=== PATIENT | male | born 1945 | race Caucasian/White ===

== ENCOUNTER 2017-04-13 11:52 | Emergency (ER) | payer MEDICARE, BC ==
[2017-04-13 12:22] VITALS: BP 161/85
[2017-04-13] MEDS ORDERED: Lidocaine 1% 20 ML MDV INJECT ONE (12:31)
[2017-04-13] MEDS ORDERED: Diphtheria,Pertussis(Acell),Tetanus Vaccine 0.5 ML SDV IM ONE (12:32)
--- NOTE | 2017-04-13 12:35 | EDM.PDOC ---
ED HPI GENERAL MEDICAL PROBLEM - General Chief Complaint: Upper Extremity Injury/Pain Stated Complaint: INJURED FINGER ON LEFT HAND Time Seen by Provider: 04/13/17 12:25 Source of Information: Reports: Patient History Limitations: Reports: No Limitations - History of Present Illness INITIAL COMMENTS - FREE TEXT/NARRATIVE: Riley is a 72 year old male who presents to the ED with c/o left second digit pain/injury after getting finger stuck between log and back of wood splitter. Patient denies any other injuries. Last DT was in 2003. Onset: Today Left Hand Pain Score (Numeric/FACES): 5 - Related Data Allergies Allergy/AdvReac Type Severity Reaction Status Date / Time No Known Allergies Allergy Verified 03/06/15 06:41 Home Meds: Home Meds Aspirin [Halfprin] 81 mg PO DAILY 03/02/15 [History] Atenolol [Tenormin] 25 mg PO DAILY 03/02/15 [History] Omeprazole 20 mg PO DAILY 03/02/15 [History] Past Medical History Cardiovascular History: Reports: Other (See Below) Other Cardiovascular History: tachycardia Social & Family History - Tobacco Use Smoking Status *Q: Never Smoker Second Hand Smoke Exposure: No - Caffeine Use Caffeine Use: Reports: Soda - Alcohol Use Days Per Week of Alcohol Use: 7 Number of Drinks Per Day: 2 Total Drinks Per Week: 14 - Recreational Drug Use Recreational Drug Use: No Review of Systems - Review of Systems Review Of Systems: ROS reveals no pertinent complaints other than HPI. Trauma Exam - Physical Exam Exam: See Below Exam Limited By: No Limitations General Appearance: Reports: Alert, WD/WN, No Apparent Distress Head: Reports: Atraumatic Throat/Mouth: Reports: Normal Inspection Neck: Reports: Non-Tender Respiratory Exam: Reports: No Respiratory Distress Extremities: Other (Crush injury to left second digit of left hand, strength to finger 5/5 distally with intact flexion and extension, sensation intact) Skin: Reports: Other (flap/crush laceration, 3 cm in total around left nail. ) Course - Vital Signs Text/Narrative:: Riley is a 72 year old male who presents to the ED today with c/o left index finger pain after getting finger crushed between back of wood splitter and log. Please see HPI and focused exam. Patient has large laceration that starts just under nail matrix and extends laterally to left lateral finger. Approx 3 cm in length overall. Nail is lifted on left side with bruising under nail. Concern for distal phalange/open fracture. DT was updated here in the ED. Digital block was performed with a total of 10 ml of lidocaine which patient tolerated well. Patient was sent to x-ray to r/o fracture. X-ray returns with displaced tuft fracture. I discussed my findings with Dr. Miramontes who recommended speaking with orthopedic Dr. Frazier. Dr. Frazier recommended suture repair and nail removal. He did encourage replacing the nail for protection, bandage and splint. He will see patient for follow up on at 9:45. I discussed findings with patient. Would was well irrigated with sterile saline. Nail was removed. After nail was removed, it became evident that crush injury involved the nail bed as this was also lacerated. There was a small (2 mm) area of what appeared to be bone along left lateral nail bed portion. All areas of laceration were sutured, covering any exposed bone. A total of 15 (5-0 ) ethilon sutures were used. Patient tolerated procedure well. Due to nature of injury and laceration repair I was unable to replace nail. Patient's wound was covered with bacitracin and adaptic as well as tube gauze. Patient's finger was then placed in metal/foam splint. Patient was started on Augmentin for infection prophylaxis and provided appt follow up time with Dr. Frazier. I encouraged patient to alternate tylenol/ibuprofen for pain, I asked if he felt he needed something stronger for pain which he declined. Reasons to return to the ED discussed in detail. Patient agreeable to plan of care and questions answered prior to discharge. Patient discharged in stable condition. Last Recorded V/S: Last Vital Signs Temp 35.9 C 04/13/17 12:22 Pulse 57 L 04/13/17 12:22 Resp 16 04/13/17 12:22 BP 161/85 H 04/13/17 12:22 Pulse Ox 99 04/13/17 12:22 - Orders/Labs/Meds Orders: Active Orders 24 hr Category Date Time Status Vaccines to be Administered [RC] PER UNIT ROUTINE Care 04/13/17 12:33 Active Meds: Medications Discontinued Medications Generic Name Dose Route Start Last Admin Trade Name Freq PRN Reason Stop Dose Admin Bacitracin 1 dose 04/13/17 14:01 04/13/17 14:03 Bacitracin Oint 1 Gm TOP 04/13/17 14:02 1 dose ONETIME ONE Administration Diphtheria/Tetanus/Acell Pertussis 0.5 ml 04/13/17 12:32 04/13/17 12:45 Adacel IM 04/13/17 12:33 0.5 ml .ONCE ONE Administration Lidocaine HCl 20 ml 04/13/17 12:31 04/13/17 12:45 Xylocaine 1% INJECT 04/13/17 12:32 20 ml ONETIME ONE Administration Departure - Departure Time of Disposition: 14:30 Disposition: Home, Self-Care 01 Condition: good Clinical Impression: Crush injury Nailbed laceration, finger Qualifiers: Encounter type: initial encounter Qualified Code(s): S61.319A - Laceration without foreign body of unspecified finger with damage to nail, initial encounter Open finger fracture Qualifiers: Encounter type: initial encounter Finger: index finger Phalanx: distal Fracture alignment: displaced Laterality: left Qualified Code(s): S62.631B - Displaced fracture of distal phalanx of left index finger, initial encounter for open fracture Finger laceration with complication Qualifiers: Encounter type: initial encounter Qualified Code(s): S61.219A - Laceration without foreign body of unspecified finger without damage to nail, initial encounter - Discharge Information Instructions: Finger Fracture, [id number], Crush Injury, Fingers or Toes, [id number], Laceration Care, Adult, Nail Bed Injury Referrals: Pancho Abdul PA-C [Primary Care Provider] - Forms: ED Department Discharge Care Plan Goals: Keep finger bandaged and in splint until you see Dr. Frazier on . Dr. Frazier is our orthopedic Doctor. He is expecting to see you at 9:45 am. Take antibiotics as prescribed. You may want to take a probiotic, such as Culturelle (over the counter) while on the antibiotics to prevent stomach upset and diarrhea. Return to the ED with any complications. - My Orders Last 24 Hours: My Active Orders 04/13/17 12:33 Vaccines to be Administered [RC] PER UNIT ROUTINE - Assessment/Plan Last 24 Hours: My Active Orders 04/13/17 12:33 Vaccines to be Administered [RC] PER UNIT ROUTINE
--- NOTE | 2017-04-13 13:05 | CR ---
Comminuted distal tuft fracture left second digit. Soft tissue irregularity as well. Arthritic rivas e second DIP joint.
[2017-04-13] MEDS ORDERED: Bacitracin Oint 1 GM U/D Packet TOP ONE (14:01)
== END 2017-04-13 14:16 | disposition home or self-care (01) ==
LOC: JP.ED 11:52
DX: S62.631B Displaced fracture of distal phalanx of left index finger, initial encounter for open fracture (principal); S61.311A Laceration without foreign body of left index finger with damage to nail, initial encounter; S67.191A Crushing injury of left index finger, initial encounter; Z23 Encounter for immunization; Z79.82 Long term (current) use of aspirin; Z79.899 Other long term (current) drug therapy; W23.1XXA Caught, crushed, jammed, or pinched between stationary objects, initial encounter
CPT/HCPCS: 11760; 73140-26-F1; 73140-F1; 90715; 99283-25; 99284-25

== ENCOUNTER 2017-06-17 22:39 | Emergency (ER) | payer MEDICARE, BC ==
[2017-06-17] MEDS ORDERED: Diltiazem 25 MG/5 ML SDV IVPUSH ONE (23:03)
[2017-06-17] MEDS ORDERED: Sodium Chloride 0.9% 1,000 ML IV SCH (23:15)
[2017-06-18] MEDS ORDERED: Diltiazem 25 MG/5 ML SDV IVPUSH ONE (00:09)
--- NOTE | 2017-06-18 01:07 | EDM.PDOC ---
ED HPI GENERAL MEDICAL PROBLEM - General Chief Complaint: Cardiovascular Problem Stated Complaint: FAST HEART RATE Time Seen by Provider: 06/17/17 23:00 Source of Information: Reports: Patient History Limitations: Reports: No Limitations - History of Present Illness INITIAL COMMENTS - FREE TEXT/NARRATIVE: History of present illness: [72-year-old male is presenting with A. fib with rapid ventricular response. This abuse third episode he's had the first one was 20 years ago second one was 17 years ago. He's never been elected go cardioverted. He is on atenolol 25 mg a day as a suppressant for going into A. fib. He does take an aspirin a day no other medications he has no history of diabetes or hypertension or heart disease or stroke or DVTs clots. He is asymptomatic with this with no chest pain or shortness of breath. The last time this happened he recalls being admitted to the hospital but by the timing of the floor he spontaneously converted and was in it for about 3 hours. He was given some meds in the ER but doesn't recall what they were. His is a retired nurse. He had been fishing today and then came home and had a beer and 3 lee.] Review of systems: As per history of present illness and below otherwise all systems reviewed and negative. Past medical history: As per history of present illness and as reviewed below otherwise noncontributory. Surgical history: As per history of present illness and as reviewed below otherwise noncontributory. Social history: No reported history of drug or alcohol abuse. Family history: As per history of present illness and as reviewed below otherwise noncontributory. Physical exam: HEENT: Atraumatic, normocephalic, Lungs: Clear to auscultation, breath sounds equal bilaterally, chest nontender. Heart: Irregular rate and rhythm without murmur Abdomen: Soft, nondistended, nontender. Negative for masses or hepatosplenomegaly. Negative for costovertebral tenderness. Pelvis: Stable nontender. Genitourinary: Deferred. Rectal: Deferred. Extremities: Atraumatic, negative for cords or calf pain. Neurovascular unremarkable. Neuro: Awake, alert, oriented. Cranial nerves II through XII unremarkable. Cerebellum unremarkable. Motor and sensory unremarkable throughout. Exam nonfocal. Diagnostics: [CBC and complete metabolic panel are unremarkable troponin is negative EKG shows A. fib chest x-ray is unremarkable] Therapeutics: [He received initially 20 mg of IV diltiazem followed by 25 mg 20 or 30 minutes later. We've observed him now for a few hours and he continues to be in A. fib with response of about 110. He continues to be asymptomatic.] Impression: [A. fib with rapid response] Plan: [We have discussed options with him and were going to send him home and have him take another atenolol and in the morning if he still in A. fib he will return at that time for consideration of elective cardioversion. His chads 2 score is 0. We have a 48 hour window of course in which we can safely do this and we would be well within that limit.] Definitive disposition and diagnosis as appropriate pending reevaluation and review of above. - Related Data Allergies Allergy/AdvReac Type Severity Reaction Status Date / Time No Known Allergies Allergy Verified 06/17/17 23:06 Home Meds: Home Meds Aspirin [Halfprin] 81 mg PO DAILY 03/02/15 [History] Atenolol [Tenormin] 25 mg PO DAILY 03/02/15 [History] Omeprazole 20 mg PO ASDIRECTED 03/02/15 [History] Past Medical History HEENT History: Reports: Impaired Vision Cardiovascular History: Reports: Afib, Other (See Below) Other Cardiovascular History: tachycardia Genitourinary History: Reports: Renal Calculus Oncologic (Cancer) History: Reports: Other (See Below) Other Oncologic History: skin cancer - Past Surgical History HEENT Surgical History: Reports: Other (See Below) Other HEENT Surgeries/Procedures: skin surgery for cancer on nose. Male Surgical History: Reports: Lithotripsy ([facility]) Neurological Surgical History: Reports: Spinal Fusion, Other (See Below) Other Neurological Surgeries/Procedures: fixed spinal stenosis Social & Family History - Tobacco Use Smoking Status *Q: Never Smoker Second Hand Smoke Exposure: No - Caffeine Use Caffeine Use: Reports: Soda - Alcohol Use Days Per Week of Alcohol Use: 6 Number of Drinks Per Day: 4 Total Drinks Per Week: 24 - Recreational Drug Use Recreational Drug Use: No ED ROS GENERAL - Review of Systems Review Of Systems: ROS reveals no pertinent complaints other than HPI. ED EXAM, GENERAL - Physical Exam Exam: See Below Course - Vital Signs Last Recorded V/S: Last Vital Signs Temp 36.8 C 06/17/17 23:05 Pulse 105 H 06/18/17 00:37 Resp 14 06/18/17 00:37 BP 121/67 06/18/17 00:37 Pulse Ox 93 L 06/18/17 00:37 - Orders/Labs/Meds Orders: Active Orders 24 hr Category Date Time Status EKG Documentation Completion [RC] ASDIRECTED Care 06/17/17 23:02 Active Chest 1V Frontal [CR] Stat Exams 06/17/17 23:01 Taken Sodium Chloride 0.9% [Normal Saline] 1,000 ml Med 06/17/17 23:15 Active IV ASDIRECTED EKG 12 Lead [EK] Stat Ther 06/17/17 23:01 Ordered Medication Orders Sodium Chloride (Normal Saline) 1,000 mls @ 500 mls/hr IV ASDIRECTED KRYSTYNA Last Admin: 06/17/17 23:14 Dose: 500 mls/hr Labs: Laboratory Tests 06/17/17 06/17/17 06/17/17 Range/Units 23:00 23:13 23:13 WBC 5.4 (4.5-11.0) K/uL RBC 5.20 (4.30-5.90) M/uL Hgb 14.0 (12.0-15.0) g/dL Hct 42.2 (40.0-54.0) % MCV 81 (80-98) fL MCH 27 (27-31) pg MCHC 33 (32-36) % Plt Count 176 (150-400) K/uL Neut % (Auto) 52 (36-66) % Lymph % (Auto) 33 (24-44) % [place] % (Auto) 11 H (2-6) % Eos % (Auto) 3 (2-4) % Baso % (Auto) 2 H (0-1) % Sodium 142 (140-148) mmol/L Potassium 4.1 (3.6-5.2) mmol/L Chloride 108 (100-108) mmol/L Carbon Dioxide 24 (21-32) mmol/L Anion Gap 10.1 (5.0-14.0) mmol/L BUN 25 H (7-18) mg/dL Creatinine 1.2 (0.8-1.3) mg/dL Est Cr Clr Drug Dosing 64.73 mL/min Estimated GFR (MDRD) 60 (>60) Glucose 117 H (74-106) mg/dL Calcium 8.9 (8.5-10.1) mg/dL Total Bilirubin 0.4 (0.2-1.0) mg/dL AST 27 (15-37) U/L ALT 19 (12-78) U/L Alkaline Phosphatase 91 (46-116) U/L Troponin I < 0.017 (0.000-0.056) ng/mL Total Protein 7.7 (6.4-8.2) g/dL Albumin 3.7 (3.4-5.0) g/dL Globulin 4.0 H (2.3-3.5) g/dL Albumin/Globulin Ratio 0.9 L (1.2-2.2) Meds: Medications Generic Name Dose Route Start Last Admin Trade Name Freq PRN Reason Stop Dose Admin Sodium Chloride 1,000 mls @ 500 mls/hr 06/17/17 23:15 06/17/17 23:14 Normal Saline IV 500 mls/hr ASDIRECTED KRYSTYNA Administration Discontinued Medications Generic Name Dose Route Start Last Admin Trade Name Freq PRN Reason Stop Dose Admin Diltiazem HCl 20 mg 06/17/17 23:03 06/17/17 23:32 Diltiazem IVPUSH 06/17/17 23:04 20 mg ONETIME ONE Administration Diltiazem HCl 25 mg 06/18/17 00:09 06/18/17 00:29 Diltiazem IVPUSH 06/18/17 00:10 25 mg ONETIME ONE Administration Departure - Departure Time of Disposition: 01:06 Disposition: Home, Self-Care 01 Condition: Good Clinical Impression: Atrial fibrillation with rapid ventricular response Forms: ED Department Discharge Additional Instructions: As we discussed please take another one of your medications when you get home and in the morning if you're still in A. fib please return to the emergency room for consideration of elective cardioversion. Certainly if he becomes symptomatic through the night you need to return sooner than the morning. This is unlikely to occur. - My Orders Last 24 Hours: My Active Orders 06/17/17 23:01 Chest 1V Frontal [CR] Stat EKG 12 Lead [EK] Stat 06/17/17 23:02 EKG Documentation Completion [RC] ASDIRECTED 06/17/17 23:15 Sodium Chloride 0.9% [Normal Saline] 1,000 ml IV ASDIRECTED - Assessment/Plan Last 24 Hours: My Active Orders 06/17/17 23:01 Chest 1V Frontal [CR] Stat EKG 12 Lead [EK] Stat 06/17/17 23:02 EKG Documentation Completion [RC] ASDIRECTED 06/17/17 23:15 Sodium Chloride 0.9% [Normal Saline] 1,000 ml IV ASDIRECTED
[2017-06-18 01:38] VITALS: BP 116/69
--- NOTE | 2017-06-18 10:02 | CR ---
Portable chest Shallow lung volumes are demonstrated. The heart and vascular structures are within normal limits. T here is subtle density in the right lung base laterally. The findings concerning for an infiltrate. Impression: 1. Right basilar infiltrate. Follow up is recommended to confirm resolution.
--- NOTE | 2017-06-22 08:17 | LETTER ---
RILEY CASTELLANO [id number] [place] [id number] 06/22/2017 Riley Castellano RE: RILEY CASTELLANO : 1945 Dear Riley, You were recently at the emergency room and, at that time, had a rapid and irregular heartbeat. Because this converted, you were discharged home. A chest x-ray was obtained and Dr. Boyd reviewed it and thought it was negative. However, as the radiologist has taken a look at this, there is a concern that you could have a little infiltrate or change at the base of the right lung. This is quite subtle and may just be normal for you, but I am asking that you follow up with your own provider, Pancho Abdul, and be sure that things are going okay and you do not have chest findings or maybe you could have a repeat chest x- ray to review that. If you have questions of me, feel free to contact me. Sincerely, /[id number]
== END 2017-06-18 01:39 | disposition home or self-care (01) ==
LOC: JP.ED 22:39
DX: I48.91 Unspecified atrial fibrillation (principal); Z85.828 Personal history of other malignant neoplasm of skin; Z98.890 Other specified postprocedural states; Z79.82 Long term (current) use of aspirin; Z79.899 Other long term (current) drug therapy
CPT/HCPCS: 36415; 71010; 80053; 84484; 85025; 93005; 96361; 96374; 96376; 99285; J7040; 93010; 99284; J3490

== ENCOUNTER 2020-12-31 07:46 | Day surgery (SDC) | payer MEDICARE, BC ==
[~2020-12-31 07:46] MED LIST: Midazolam 1 MG/ML 2 ML SDV ONE; Propofol 200 MG/20 ML SDV ONE; Sodium Chloride 0.9% 1,000 ML IV SCH; fentaNYL 100 MCG/2 ML SDV ONE
[2020-12-31] MEDS: Sodium Chloride 0.9% 1,000 ML IV SCH (08:26)
[2020-12-31 10:52] VITALS: BP 127/73; PULSE 45
--- NOTE | 2020-12-31 12:04 | OR ---
DATE OF PROCEDURE: 12/31/2020 SURGEON: Brady Mills MD PROCEDURE PERFORMED: Colonoscopy. FINDINGS: Ascending colon polyp, approximately 1 cm, completely removed using hot snare wire device. COMPLICATION: None. ACCOUNTING SUPERVISOR: None. ANESTHESIA: MAC. PREOPERATIVE DIAGNOSIS: Screening colonoscopy. POSTOPERATIVE DIAGNOSIS: Screening colonoscopy. RISKS: Risks, benefits, alternatives, and limitations including, but not limited to, infection, bleeding, and perforation were explained. They wished to proceed. We also discussed false positives and false negatives. PROCEDURE IN DETAIL: The patient was placed in left lateral decubitus position. Digital rectal exam was performed without abnormality. Scope was introduced and advanced atraumatically to the ileocecal valve. A photo was taken. Scope was brought back to the ascending, transverse, descending colon, and retroflexed. No evidence of old or new blood. No masses. The aforementioned polyp was identified and completely removed. No abnormal bleeding after removal. No abnormalities on retroflexed. The patient tolerated the procedure well. Greater than 8 minutes was spent removing the scope and the prep was acceptable, 95% luminal surface could be seen. Brady Mills MD /[id number]
== END 2020-12-31 10:53 | disposition home or self-care (01) ==
LOC: JP.SDS 07:46
PROVIDERS: ATTEND Surgery
DX: Z12.11 Encounter for screening for malignant neoplasm of colon (principal); D12.2 Benign neoplasm of ascending colon
CPT/HCPCS: J2250; J2704; J3010; J7030